=== PATIENT | male | born 1945 | race Two or more races ===

== ENCOUNTER 2023-03-25 20:17 | Emergency (ER) | payer OTHER ==
[2023-03-25 20:47] LABS: Basophils # (auto) 0.1 10 ^3/uL (0-0.2); Basophils % (auto) 0.6 % (0.0-2.0); Eosinophils # (auto) 0 10 ^3/uL (0-0.8); Hematocrit 46.1 % (41.0-53.0); Hemoglobin 15.5 g/dL (13.5-17.5); Lymphocytes # (auto) 3.3 10 ^3/uL (0.4-5.4); Lymphocytes % (auto) 21.1 % (10.0-50.0); Mean Corpuscular Hemoglobin 31.9 pg (28.0-32.0); Mean Corpuscular Hgb Conc. 33.6 g/dL (32.0-36.0); Mean Corpuscular Volume 94.8 fL (80.0-100.0); Monocytes # (auto) 1.7 10 ^3/uL (0-1.3); Neutrophils # (auto) 10.4 10 ^3/uL (1.6-8.6); Neutrophils % (auto) 67.3 % (37.0-80.0); Nucleated Red Blood Cells % 0.1 %; Red Blood Cells 4.86 10^6/uL (4.5-5.90); Red Cell Distribution Width 13.8 % (11.8-14.3); White Blood Cell 15.4 10^3/uL (4.4-10.8)
[2023-03-25 21:02] LABS: INR 1.07 (0.9-1.15); Partial Thromboplastin Time 25.1 SEC (24.5-34.5); Prothrombin Time 11.2 sec (9.3-11.8)
[2023-03-25 21:15] LABS: Acetaminophen < 2.0 UG/ML (10.0-20.0); Alanine Aminotransferase 43 U/L (7-40); Albumin 4.7 g/dL (3.2-4.8); Alkaline Phosphatase 73 U/L (46-116); Anion Gap 14 (5-15); Aspartate Aminotransferase 64 U/L (13-40); BUN/Creatinine Ratio 13.4 (10.0-20.0); Blood Alcohol 267.5 mg/dL (<10); Blood Urea Nitrogen 17 mg/dL (9-23); Calcium 9.3 mg/dL (8.5-10.1); Carbon Dioxide 22 mmol/L (20-30); Chloride 104 mmol/L (98-107); Glucose 168 mg/dL (74-106); Sodium 140 mmol/L (136-145)
[2023-03-25 21:16] LABS: Bilirubin, Total 0.8 mg/dL (0.2-1.0); Total Protein 7.6 g/dL (5.7-8.2)
[2023-03-25 21:25] LABS: Magnesium 2.1 mg/dL (1.6-2.6)
[2023-03-25 21:38] LABS: Salicylate < 3.0 mg/dL (2.8-20.0)
[2023-03-26 01:11] VITALS: TEMP 98
[2023-03-26 05:00] VITALS: BP 142/87; RESP 18; O2SAT 96
[2023-03-26 07:08] VITALS: PULSE 91
== END 2023-03-26 07:50 | disposition home or self-care (01) ==
LOC: ER 20:17 → EDBD 20:17 → ER 03-26 07:32
DX: R07.89 Other chest pain (principal); E11.65 Type 2 diabetes mellitus with hyperglycemia; R74.01 Elevation of levels of liver transaminase levels; F10.129 Alcohol abuse with intoxication, unspecified; I10 Essential (primary) hypertension; I25.2 Old myocardial infarction; E78.5 Hyperlipidemia, unspecified; Y90.0 Blood alcohol level of less than 20 mg/100 ml
CPT/HCPCS: 36415; 71045; 80053; 80320; 80329; 83735; 83880; 84484; 85025; 85610; 85730; 93005